=== PATIENT | male | born 1970 | race Caucasian/White ===

== ENCOUNTER 2017-03-29 23:45 | Observation (INO) ==
[2017-03-30] MEDS ORDERED: 0.9 % Sodium Chloride 1,000 ML IVC ONE ×2 (00:39→02:14)
[2017-03-30 01:24] LABS: Basophils # 0.1 K/mcL (0.0-0.2); Basophils % 0.6 %; Eosinophils # 0.3 K/mcL (0.0-0.6); Eosinophils % 2.4 %; Hematocrit 37.8 % (37.5-50.1); Hemoglobin 12.4 g/dL (12.9-16.9); Immature Granulocytes % 0.4 % (0-4); Lymphocytes # 4.1 K/mcL (0.6-4.6); Lymphocytes % 35.4 %; Mean Corpuscular HGB Conc 32.8 g/dL (31.6-35.5); Mean Corpuscular Hemoglobin 29.3 pg (28.0-33.3); Mean Corpuscular Volume 89.4 fL (83.0-100.0); Mean Platelet Volume 9.4 fL (9.4-12.4); Monocytes # 0.8 K/mcL (0.0-1.3); Monocytes % 7.3 %; Neutrophils # 6.2 K/mcL (1.6-8.9); Platelet Count 449 K/mcL (140-400); Red Blood Count 4.23 M/mcL (4.19-5.50); Red Cell Distribution Width 14.2 % (11.5-14.5); Segmented Neutrophils % 53.9 %
--- NOTE | 2017-03-30 01:38 | Emergency Department Note ---
Disposition Clinical Impression: Near syncope, Hyponatremia, Tobacco abuse Chest pain Qualifiers: Chest pain type: unspecified Qualified Code(s): R07.9 - Chest pain, unspecified Disposition: Admitted As Inpatient Condition: Good Time of Disposition: 02:40 Dizziness HPI - General Chief Complaint: ED Dizziness Stated Complaint: dizziness,syncope, bp is low Time Seen by Provider: 03/30/17 00:37 Source: patient, family Mode of arrival: ambulatory Limitations: no limitations Nursing Notes Reviewed: Yes Vital Signs Reviewed: Yes - History of Present Illness HPI Narrative: Patient is a 46-year-old male who presents to the ED with dizziness and chest pain. This all occurred around 10:30 PM. He became dizzy when he stood up and walking to the bathroom. He also got dizzy while he was straining to have a bowel movement on the toilet. Each of the dizziness episode lasted about 30-40 seconds. Patient also states that after that he began to have some chest pain. Chest pain is located on the left side does not radiate anywhere and nothing seems to make this pain any better or worse. Patient is currently not having any chest pain. Patient states that he had a stress test one year ago due to reported trigeminy prior to a colonoscopy. He states that the stress test was "normal" and was able to have the colonoscopy. Patient reports that he took his blood pressure during these events and initial blood pressure reading was 75 /43. She does report some mild shortness of breath that has resolved. He states that he is currently feeling drained. He denies any fall or loss of consciousness - Related Data Allergies Allergy/AdvReac Type Severity Reaction Status Date / Time Erythromycin Base AdvReac Diarrhea Verified 03/30/17 00:13 All systems ED: reviewed and negative except as stated. Cardiovascular: Reports: chest pain Respiratory: Reports: dyspnea Gastrointestinal: Reports: abdominal pain Past Medical History - Past Medical History Medical history: Reports: hypertension Psychiatric history: Reports: depression - Social History Smoking Status: Current every day smoker Alcohol use: Reports: none Drug use: Reports: marijuana Physical Exam - General Limitations: no limitations General appearance: alert, in no apparent distress - Head Head exam: atraumatic, normocephalic - Neck Neck exam: Present: normal inspection, full ROM, trachea midline - Chest Chest inspection: Present: symmetric chest wall rise - Respiratory Respiratory exam: Present: normal lung sounds bilaterally. Absent: respiratory distress, wheezes - Cardiovascular Cardiovascular exam: Present: regular rate, normal rhythm, normal heart sounds, +S1, +S2 - Abdominal Exam Abdominal exam: Present: soft, tenderness Abdominal tenderness: Present: diffuse, mild - Extremities Exam Extremities exam: Present: full ROM. Absent: tenderness, pedal edema - Expanded Lower Extremity Exam Knee exam: Present: dislocation - Neurological Exam Neurological exam: Present: alert, oriented X3 - Psychiatric Psychiatric exam: Present: normal affect, normal mood - Skin Skin exam: Present: warm, dry, intact Course Vital Signs Temperature 98.1 F 03/30/17 00:08 Pulse Rate 83 03/30/17 00:08 Respiratory Rate 18 03/30/17 00:08 Blood Pressure 114/72 03/30/17 00:08 O2 Sat by Pulse Oximetry 95 03/30/17 00:08 Temperature 0 F L 03/30/17 03:00 Pulse Rate 66 03/30/17 00:58 Respiratory Rate 18 03/30/17 03:00 Blood Pressure 102/78 03/30/17 03:00 O2 Sat by Pulse Oximetry 95 03/30/17 00:08 Oxygen Delivery Oxygen Delivery Room Air Dizziness - MDM Narrative Medical decision making narrative: Patient is a 46-year-old male that presents to the ED for dizziness and chest pain. His EKG appears to be sinus rhythm. Due to the patient's symptoms and the history that was given as well as the laboratory findings showing hyponatremia we will be admitting the patient. The hospitalist has been called. I spoke with the hospitalist Dr. Jade and he has accepted the admission. - Lab Data Lab results reviewed: Yes I reviewed the patient's lab results. Result diagrams: 03/30/17 00:50 03/30/17 00:50 Lab Results 03/30/17 03/30/17 03/30/17 Range/Units 00:50 00:50 00:50 WBC 11.6 H (4.3-11.1) K/mcL RBC 4.23 (4.19-5.50) M/mcL Hgb 12.4 L (12.9-16.9) g/dL Hct 37.8 (37.5-50.1) % MCV 89.4 (83.0-100.0) fL MCH 29.3 (28.0-33.3) pg MCHC 32.8 (31.6-35.5) g/dL RDW 14.2 (11.5-14.5) % Plt Count 449 H (140-400) K/mcL MPV 9.4 (9.4-12.4) fL Immature Gran % 0.4 (0-4) % Seg Neutrophils % 53.9 % Lymphocytes % 35.4 % Monocytes % 7.3 % Eosinophils % 2.4 % Basophils % 0.6 % Neutrophils # 6.2 (1.6-8.9) K/mcL Lymphocytes # 4.1 (0.6-4.6) K/mcL Monocytes # 0.8 (0.0-1.3) K/mcL Eosinophils # 0.3 (0.0-0.6) K/mcL Basophils # 0.1 (0.0-0.2) K/mcL Sodium 127 L (136-145) mEq/L Potassium 3.5 (3.5-4.5) mEq/L Chloride 95 L (98-109) mEq/L Carbon Dioxide 19 (19-29) mEq/L BUN 8 (8-26) mg/dL Creatinine 1.18 (0.72-1.25) mg/dL Est GFR ( Amer) > 60 (> 60) Est GFR (Non-Af Amer) > 60 (> 60) BUN/Creatinine Ratio 7 (6-26) Glucose 117 H (70-99) mg/dL Calculated Osmolality 263 L (280-300) Calcium 9.4 (8.6-10.8) mg/dL Total Bilirubin 0.1 L (0.2-1.2) mg/dL AST 19 (5-34) Units/L ALT 18 (0-55) Units/L Alkaline Phosphatase 75 (38-126) Units/L Troponin I 0.01 (0-0.03) ng/mL Serum Total Protein 7.3 (6.0-8.3) g/dL Albumin 3.6 (3.5-5.0) g/dL Globulin 3.7 H (2.4-3.5) g/dL Albumin/Globulin Ratio 1.0 L (1.1-2.2) Urine Color (Yellow) Urine Clarity (Clear) Urine pH (5.0-8.0) pH Units Ur Specific [place] (1.010-1.025) Urine Protein (Neg-Trace) mg/dL Urine Glucose (UA) (Normal) mg/dL Urine Ketones (Negative) mg/dL Urine Blood (Negative) Urine Nitrite (Negative) Urine Bilirubin (Negative) Urine Urobilinogen (Normal) mg/dL Ur Leukocyte Esterase (Negative) Ur Culture Indicated? (NO) 03/30/17 Range/Units 01:30 WBC (4.3-11.1) K/mcL RBC (4.19-5.50) M/mcL Hgb (12.9-16.9) g/dL Hct (37.5-50.1) % MCV (83.0-100.0) fL MCH (28.0-33.3) pg MCHC (31.6-35.5) g/dL RDW (11.5-14.5) % Plt Count (140-400) K/mcL MPV (9.4-12.4) fL Immature Gran % (0-4) % Seg Neutrophils % % Lymphocytes % % Monocytes % % Eosinophils % % Basophils % % Neutrophils # (1.6-8.9) K/mcL Lymphocytes # (0.6-4.6) K/mcL Monocytes # (0.0-1.3) K/mcL Eosinophils # (0.0-0.6) K/mcL Basophils # (0.0-0.2) K/mcL Sodium (136-145) mEq/L Potassium (3.5-4.5) mEq/L Chloride (98-109) mEq/L Carbon Dioxide (19-29) mEq/L BUN (8-26) mg/dL Creatinine (0.72-1.25) mg/dL Est GFR ( Amer) (> 60) Est GFR (Non-Af Amer) (> 60) BUN/Creatinine Ratio (6-26) Glucose (70-99) mg/dL Calculated Osmolality (280-300) Calcium (8.6-10.8) mg/dL Total Bilirubin (0.2-1.2) mg/dL AST (5-34) Units/L ALT (0-55) Units/L Alkaline Phosphatase (38-126) Units/L Troponin I (0-0.03) ng/mL Serum Total Protein (6.0-8.3) g/dL Albumin (3.5-5.0) g/dL Globulin (2.4-3.5) g/dL Albumin/Globulin Ratio (1.1-2.2) Urine Color Yellow (Yellow) Urine Clarity Clear (Clear) Urine pH 6.5 (5.0-8.0) pH Units Ur Specific [place] 1.007 L (1.010-1.025) Urine Protein Negative (Neg-Trace) mg/dL Urine Glucose (UA) Normal (Normal) mg/dL Urine Ketones Negative (Negative) mg/dL Urine Blood Negative (Negative) Urine Nitrite Negative (Negative) Urine Bilirubin Negative (Negative) Urine Urobilinogen Normal (Normal) mg/dL Ur Leukocyte Esterase Negative (Negative) Ur Culture Indicated? NO (NO) - Radiology Data Radiology results reviewed: Yes I reviewed the patient's radiology results. Chest X-Ray 03/30/17 00:39 IMPRESSION: No acute process. D/ / Guillermo England MD / Guillermo England MD Interpreting Provider: Guillermo England MD - EKG Data EKG attestation: Yes I reviewed and interpreted this EKG. EKG results narrative: EKG shows sinus rhythm with a rate of 75 bpm, ER interval of 142, QRS duration 96, QTc of 400, with a normal axis. No ischemic changes noted on the EKG S.B.A.R. - S.B.A.R. Transition of Care: I spoke with Dr. Jade about the patient and he has accepted the patient to their service and asked that he have a telemetry bed. Attestation Statement - Attestation Attestation: I personally interviewed and examined this patient and my medical decision- making was reviewed with the ED Resident Physician, Dr. Vaughn. I agree with the documented findings, disposition and treatment plan as described except to the extent set forth below. Patient is a 46-year-old white male who presents to the emergency department tonight brought by his family for near syncopal episode which was associated with substernal chest pain at home both positional changes that elicited these symptoms as well as Valsalva during bowel movement. Patient currently on arrival is chest pain-free and asymptomatic no dizziness or lightheadedness in no acute distress on arrival. I agree with patient's physical exam findings as documented. EKG shows no acute ST or T-wave changes. Patient was given aspirin on arrival placed on payroll processor and pulse oximeter continued monitoring of vitals. He was given aspirin, a liter fluid bolus and had lab evaluation portal chest x-ray. We were concerned about patient's chest pain that was associated with near syncope. His chest x-ray is within normal limits, and initial troponin is negative. His sodium is extremely low 127 with unclear etiology. Patient denies any loss of fluids or recent illness. Patient was placed in seizure precautions and IV fluids were initiated. Patient remained hemodynamically stable while in the emergency department, received 2 L fluid bolus and maintenance IV fluids. Patient has remained chest pain free throughout his stay. We will admit him for further evaluation of near syncope, chest pain, hyponatremia. Case was discussed with the hospitalist who accepted the patient for admission.
[2017-03-30 01:40] LABS: Alanine Aminotransferase 18 Units/L (0-55); Albumin 3.6 g/dL (3.5-5.0); Alkaline Phosphatase 75 Units/L (38-126); Aspartate Amino Transferase 19 Units/L (5-34); BUN/Creatinine Ratio 7 (6-26); Bilirubin,Total 0.1 mg/dL (0.2-1.2); Blood Urea Nitrogen 8 mg/dL (8-26); Calcium 9.4 mg/dL (8.6-10.8); Carbon Dioxide 19 mEq/L (19-29); Chloride 95 mEq/L (98-109); Globulin 3.7 g/dL (2.4-3.5); Glucose 117 mg/dL (70-99); Osmolality,Calculated 263 (280-300); Potassium 3.5 mEq/L (3.5-4.5); Sodium 127 mEq/L (136-145); Total Protein 7.3 g/dL (6.0-8.3); eGFR For African Americans > 60 (> 60); eGFR For Non-African Americans > 60 (> 60)
[2017-03-30 01:54] LABS: Bilirubin,Urine Negative (Negative); Blood,Urine Negative (Negative); Clarity,Urine Clear (Clear); Color,Urine Yellow (Yellow); Glucose,Urine (UA) Normal (Normal); Ketones,Urine Negative (Negative); Leukocyte Esterase,Urine Negative (Negative); Nitrite,Urine Negative (Negative); PH,Urine 6.5 pH Units (5.0-8.0); Protein,Urine Negative (Neg-Trace); Specific Gravity,Urine 1.007 (1.010-1.025); Urobilinogen,Urine Normal (Normal)
[2017-03-30] MEDS ORDERED: Aspirin 81 MG TAB.CHEW PO ONE (02:00)
[2017-03-30] MEDS ORDERED: Nicotine 21 MG PATCH.TD24 TD ONE (02:30)
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
[2017-03-30] MEDS ORDERED: Naloxone 0.4 MG/ML INJ IVP PRN (04:14)
[2017-03-30] MEDS ORDERED: Acetaminophen 325 MG TABLET PO PRN (04:14)
[2017-03-30] MEDS ORDERED: Ondansetron ODT 4 MG TAB.RAPDIS SL PRN (04:14)
[2017-03-30] MEDS ORDERED: *HR* Heparin 5,000 UNIT/ML VIAL SQ SCH (06:00)
[2017-03-30] MEDS ORDERED: Nicotine 14 MG PATCH.TD24 TD SCH (09:00)
[2017-03-30] MEDS ORDERED: Lisinopril-HCTZ 20-12.5mg TABLET PO SCH (09:00)
[2017-03-30 09:04] LABS: Basophils # 0.1 K/mcL (0.0-0.2); Basophils % 0.8 %; Eosinophils # 0.4 K/mcL (0.0-0.6); Eosinophils % 3.8 %; Hematocrit 36.8 % (37.5-50.1); Immature Granulocytes % 0.2 % (0-4); Lymphocytes # 4.7 K/mcL (0.6-4.6); Lymphocytes % 49.4 %; Mean Corpuscular HGB Conc 32.6 g/dL (31.6-35.5); Mean Corpuscular Hemoglobin 29.4 pg (28.0-33.3); Mean Corpuscular Volume 90.2 fL (83.0-100.0); Mean Platelet Volume 9.6 fL (9.4-12.4); Monocytes # 0.6 K/mcL (0.0-1.3); Monocytes % 6.4 %; Neutrophils # 3.8 K/mcL (1.6-8.9); Platelet Count 393 K/mcL (140-400); Red Blood Count 4.08 M/mcL (4.19-5.50); Red Cell Distribution Width 14.2 % (11.5-14.5); Segmented Neutrophils % 39.4 %
[2017-03-30 09:18] LABS: BUN/Creatinine Ratio 7 (6-26); Blood Urea Nitrogen 6 mg/dL (8-26); Calcium 8.5 mg/dL (8.6-10.8); Carbon Dioxide 25 mEq/L (19-29); Chloride 101 mEq/L (98-109); Glucose 98 mg/dL (70-99); Osmolality,Calculated 272 (280-300); Sodium 132 mEq/L (136-145); eGFR For African Americans > 60 (> 60); eGFR For Non-African Americans > 60 (> 60)
[2017-03-30 11:32] VITALS: BP 135/71
--- NOTE | 2017-03-30 11:57 | Discharge Summary ---
Date of Encounter: 03/30/17 Time of Encounter: 11:55 - Discharge Diagnosis (1) Chest pain Priority: Primary Status: Resolved Qualifiers: Chest pain type: unspecified Qualified Code(s): R07.9 - Chest pain, unspecified (2) Hyponatremia Priority: Primary Status: Acute (3) Dehydration Priority: Primary Status: Acute (4) Constipation Priority: Primary Status: Acute Qualifiers: Constipation type: unspecified constipation type Qualified Code(s): K59.00 - Constipation, unspecified (5) Tobacco abuse Priority: Secondary Status: Chronic - Discharge Medications Home Medications: Acetaminophen [Tylenol] 03/30/17 [History] DiphenhydraMINE [Benadryl] 03/30/17 [History] Docusate [Colace] 100 mg PO BID 03/30/17 [History] Gabapentin [Neurontin] 100 mg PO BID 03/30/17 [History] Pantoprazole Sodium [Protonix] 40 mg PO BID 03/30/17 [History] Sennosides [Senna] 2 tab PO HS 03/30/17 [History] Tizanidine HCl [Zanaflex] 1 tab PO BID PRN 03/30/17 [History] Allergies/Adverse Reactions: Allergies Erythromycin Base Adverse Reaction (Verified 03/30/17 00:13) Diarrhea Procedures/tests Complete & Pending: Procedures Performed prior 72 hours Category Date Time Status EV echocardiogram Routine Y 03/30/17 05:38 Stop Req Date of admission: 03/30/17 02:54 Primary care physician: PCP NO - Patient Status Disposition: Home, Self-Care Condition: Good Functional capacity at discharge: independent ambulation Overall status at discharge: patient is progressing back to baseline - Discharge Instructions Instructions: Chest Pain (DC) Follow Up With: NO,PCP [Primary Care Provider] - Forms: ED Satisfaction Letter Additional Instructions: check your blood pressure twice daily, same time in the morning and in the evening. write down numbers and bring record to doctor' s appointment. call your doctor if BP more than 140/90 - Diet and Activity Activity: resume usual activities as tolerated Diet: low fat, low cholesterol Interval History: no chest pain. no shortness of breath. he feels much better and is eager to go home. Hospital course: Mr. Hutson is a 46 year old male with a past medical history of hypertension, and depression who presented with a chief complaint of lightheadedness and left- sided chest pain. He took his blood pressure at home and it was 80/50. In our ED, he was hemodynamically stable. Sodium was 127. Hemoglobin 12. Negative troponin 2. EKG showed no acute ischemic changes. Chest x-ray was negative for any acute process He received 2 L of normal saline in the ED. On arrival to our floor, he was asymptomatic and hemodynamically stable. No telemetry events during the hospitalization. His sodium went up to 132. He had a large bowel movement. PLAN: Patient and family explaining detail his diagnosis of hyponatremia, and dehydration as well as his treatment including stopping lisinopril and HCTZ, maintaining a good hydration. Patient verbalized understanding and agree with the plan. All questions answered. He was counseled to quit smoking. He declined. check BP daily. Repeat sodium on Friday at outpatient primary care doctor's office. - Time Spent with Patient Total time spent providing and/or coordinating discharge services: - Constitutional Vitals: Temp Pulse Resp BP Pulse Ox 98.0 F 59 16 135/71 96 03/30/17 11:28 03/30/17 11:28 03/30/17 11:28 03/30/17 11:28 03/30/17 11:28 General appearance: Present: cooperative, A&O X 3, pleasant, no acute distress, obese, answers questions appropriately - Eye Eye exam: Present: PERRL, sclera anicteric - Neck Neck exam general surgery: Present: supple, trachea midline. Absent: lymphadenopathy - Respiratory Respiratory exam: Present: CTAB - Cardiovascular Cardiovascular exam: Present: RRR - GI/Abdominal GI/Abdominal exam: Present: normal bowel sounds, soft. Absent: distended, tenderness - Extremities Exam Extremities exam: Absent: pedal edema - Back Exam Back exam: Absent: CVA tenderness (L), CVA tenderness (R) - Neurological Exam Neurological exam: Present: alert, oriented X3, no focal deficits, strengths equal and symetr throughout. Absent: facial droop, speech deficit - Skin Skin exam: Absent: rash
--- NOTE | 2017-03-31 15:20 | Electrocardiograph Report ---
[place] [id number] Test Date: 2017-03-30 Pat Name: Larry Hutson Department: 105 Room: 3B44 Gender: M Collections Analyst: TRACI : 1970 Requested By: Jaylene Hernández Order Number: [id number] Reading MD: Ra Gonzalez MD Measurements Intervals [place] Rate: 75 P: 33 MT: 142 QRS: 8 QRSD: 96 T: 18 QT: 371 QTc: 400 Interpretive Statements SINUS RHYTHM Electronically Signed On 03-31-2017 15:18:25 EDT by Ra Gonzalez MD
== END 2017-03-30 12:20 | disposition home or self-care (01) ==
LOC: EMEROO 23:45 → 3BNU 23:45 → SUATTDRO 03-30 02:54 → 3BNU 03-30 03:55
PROVIDERS: ADMIT Pediatrics; ATTEND Internal Medicine

== ENCOUNTER 2017-07-20 10:19 | Inpatient (IN) ==
[2017-07-20] MEDS ORDERED: Ondansetron ODT 4 MG TAB.RAPDIS SL ONE (10:45)
--- NOTE | 2017-07-20 10:45 | Emergency Department Note ---
Disposition Clinical Impression: Hypoxia Pneumonia Qualifiers: Pneumonia type: due to unspecified organism Laterality: left Lung location: lower lobe of lung Qualified Code(s): J18.1 - Lobar pneumonia, unspecified organism Disposition: Admitted As Inpatient Condition: Fair Referrals: Kira Lopez MD [Primary Care Provider] - Forms: ED Satisfaction Letter, Work/School Release Time of Disposition: 12:10 Abdominal Pain HPI - General Chief Complaint: ED General Medical Stated Complaint: chills,fever Time Seen by Provider: 07/20/17 10:35 Source: patient Mode of arrival: ambulatory Limitations: no limitations Nursing Notes Reviewed: Yes Vital Signs Reviewed: Yes - History of Present Illness HPI Narrative: 46-year-old comes in complaining of a fever cough burning with urination and abdominal pain and constipation. Patient has a chronic history of constipation ran out of one of his medications. Patient has taken mag citrate without success. Pt Subjective Complaint: abdominal pain Onset (ago): day(s) Consistency: constant Location: diffuse Pain Scale: 5 Quality: aching Radiation: none Migration to: no migration Improves with: nothing Associated symptoms: Reports: nausea, constipation Treatments prior to arrival: none - Related Data Home Medications Medication Instructions Recorded Confirmed Acetaminophen [Tylenol] 03/30/17 DiphenhydraMINE [Benadryl] 03/30/17 Docusate [Colace] 100 mg PO BID 03/30/17 03/30/17 Gabapentin [Neurontin] 100 mg PO BID 03/30/17 03/30/17 Pantoprazole Sodium [Protonix] 40 mg PO BID 03/30/17 03/30/17 Sennosides [Senna] 2 tab PO HS 03/30/17 03/30/17 Tizanidine HCl [Zanaflex] 1 tab PO BID PRN 03/30/17 03/30/17 Allergies Allergy/AdvReac Type Severity Reaction Status Date / Time Erythromycin Base AdvReac Diarrhea Verified 07/20/17 10:34 Abdominal Pain PMH - Past Medical History Medical history: Reports: hypertension, kidney stones Male Surgical History: Reports: orthopedic, other Psychiatric history: Reports: depression - Social History Smoking status: Current every day smoker Alcohol use: Reports: none Drug use: Reports: marijuana Physical Exam - General Limitations: no limitations General appearance: alert, in no apparent distress - Head Head exam: atraumatic, normocephalic, normal inspection - Eye Eye exam: Present: normal appearance, PERRL, EOMI - ENT ENT exam: normal exam, normal oropharynx, mucous membranes moist - Neck Neck exam: Present: normal inspection, full ROM, trachea midline - Chest Chest inspection: Present: normal inspection, symmetric chest wall rise - Respiratory Respiratory exam: Present: normal lung sounds bilaterally - Cardiovascular Cardiovascular exam: Present: regular rate, normal rhythm, normal heart sounds - Abdominal Exam Abdominal exam: Present: soft, tenderness. Absent: guarding, rebound Abdominal tenderness: Present: diffuse - Extremities Exam Extremities exam: Present: normal inspection, full ROM. Absent: tenderness, pedal edema - Expanded Lower Extremity Exam Neurovascular/Tendon exam: Absent: motor deficit, sensory deficit, tendon deficit Gait: observed and normal - Back Exam Back exam: Present: normal inspection, full ROM. Absent: tenderness - Neurological Exam Neurological exam: Present: alert, oriented X3 - Psychiatric Psychiatric exam: Present: normal affect, normal mood - Skin Skin exam: Present: warm, dry, intact, normal color Course - Reevaluation(s) Reevaluation #1: 46-year-old who comes in with a cough congestion and fever also complaining of constipation. Workup included chest x-ray shows a left lower lobe infiltrate. Pulse ox was 90% on room air. Pulse ox improved to 94-95% on 2 L. Patient will be admitted for pneumonia with hypoxia. Time: 12:08 - Consultations Consultation #1: Discussed with Dr. Gaspar, admitted Time: 12:16 Vital Signs Temperature 102.7 F H 07/20/17 10:29 Pulse Rate 95 07/20/17 10:29 Respiratory Rate 20 07/20/17 10:29 Blood Pressure 199/127 07/20/17 10:29 O2 Sat by Pulse Oximetry 92 07/20/17 10:29 Temperature 100.7 F H 07/20/17 11:33 Pulse Rate 91 07/20/17 11:33 Respiratory Rate 20 07/20/17 11:33 Blood Pressure 130/78 07/20/17 11:33 O2 Sat by Pulse Oximetry 92 07/20/17 11:33 Oxygen Delivery Oxygen Delivery Room Air Abdominal Pain - Lab Data Result diagrams: 07/20/17 10:54 07/20/17 10:54 Lab Results 07/20/17 07/20/17 07/20/17 Range/Units 10:44 10:54 10:54 WBC 13.7 H (4.3-11.1) K/mcL RBC 4.83 (4.19-5.50) M/mcL Hgb 13.5 (12.9-16.9) g/dL Hct 41.1 (37.5-50.1) % MCV 85.1 (83.0-100.0) fL MCH 28.0 (28.0-33.3) pg MCHC 32.8 (31.6-35.5) g/dL RDW 16.4 H (11.5-14.5) % Plt Count 436 H (140-400) K/mcL MPV 9.3 L (9.4-12.4) fL Immature Gran % 0.4 (0-4) % Seg Neutrophils % 74.5 % Lymphocytes % 14.9 % Monocytes % 9.6 % Eosinophils % 0.1 % Basophils % 0.5 % Neutrophils # 10.2 H (1.6-8.9) K/mcL Lymphocytes # 2.0 (0.6-4.6) K/mcL Monocytes # 1.3 (0.0-1.3) K/mcL Eosinophils # 0.0 (0.0-0.6) K/mcL Basophils # 0.1 (0.0-0.2) K/mcL Immature Plt Fraction 2.7 (1.1-6.1) % Sodium 132 L (136-145) mEq/L Potassium 3.6 (3.5-4.5) mEq/L Chloride 99 (98-109) mEq/L Carbon Dioxide 19 (19-29) mEq/L BUN 9 (8-26) mg/dL Creatinine 1.01 (0.72-1.25) mg/dL Est GFR ( Amer) > 60 (> 60) Est GFR (Non-Af Amer) > 60 (> 60) BUN/Creatinine Ratio 9 (6-26) Glucose 106 H (70-99) mg/dL Calculated Osmolality 273 L (280-300) Lactic Acid (0.5-2.2) mmol/L Calcium 9.3 (8.6-10.8) mg/dL Total Bilirubin 0.5 (0.2-1.2) mg/dL Direct Bilirubin 0.2 (0.0-0.5) mg/dL Indirect Bilirubin 0.3 (0.0-1.2) mg/dL AST 18 (5-34) Units/L ALT 20 (0-55) Units/L Alkaline Phosphatase 84 (38-126) Units/L Serum Total Protein 8.1 (6.0-8.3) g/dL Albumin 3.2 L (3.5-5.0) g/dL Globulin 4.9 H (2.4-3.5) g/dL Albumin/Globulin Ratio 0.7 L (1.1-2.2) Amylase 39 (25-125) Units/L Lipase 15 (8-78) Units/L Urine Color Dark Yellow (Yellow) Urine Clarity Clear (Clear) Urine pH 6.0 (5.0-8.0) pH Units Ur Specific [place] > 1.030 H (1.010-1.025) Urine Protein Trace (Neg-Trace) mg/dL Urine Glucose (UA) Normal (Normal) mg/dL Urine Ketones Negative (Negative) mg/dL Urine Blood Negative (Negative) Urine Nitrite Negative (Negative) Urine Bilirubin Negative (Negative) Urine Urobilinogen Normal (Normal) mg/dL Ur Leukocyte Esterase Negative (Negative) Urine Microscopic RBC 3-5 H (0-3) per hpf Urine Microscopic WBC 0-3 (0-3) per hpf Ur Squamous Epith Cells Few (None-Few) per lpf Urine Bacteria None Seen (None-Few) per hpf Hyaline Casts None Seen (None-Few) per lpf Ur Culture Indicated? NO (NO) 07/20/17 Range/Units 10:54 WBC (4.3-11.1) K/mcL RBC (4.19-5.50) M/mcL Hgb (12.9-16.9) g/dL Hct (37.5-50.1) % MCV (83.0-100.0) fL MCH (28.0-33.3) pg MCHC (31.6-35.5) g/dL RDW (11.5-14.5) % Plt Count (140-400) K/mcL MPV (9.4-12.4) fL Immature Gran % (0-4) % Seg Neutrophils % % Lymphocytes % % Monocytes % % Eosinophils % % Basophils % % Neutrophils # (1.6-8.9) K/mcL Lymphocytes # (0.6-4.6) K/mcL Monocytes # (0.0-1.3) K/mcL Eosinophils # (0.0-0.6) K/mcL Basophils # (0.0-0.2) K/mcL Immature Plt Fraction (1.1-6.1) % Sodium (136-145) mEq/L Potassium (3.5-4.5) mEq/L Chloride (98-109) mEq/L Carbon Dioxide (19-29) mEq/L BUN (8-26) mg/dL Creatinine (0.72-1.25) mg/dL Est GFR ( Amer) (> 60) Est GFR (Non-Af Amer) (> 60) BUN/Creatinine Ratio (6-26) Glucose (70-99) mg/dL Calculated Osmolality (280-300) Lactic Acid 3.6 H (0.5-2.2) mmol/L Calcium (8.6-10.8) mg/dL Total Bilirubin (0.2-1.2) mg/dL Direct Bilirubin (0.0-0.5) mg/dL Indirect Bilirubin (0.0-1.2) mg/dL AST (5-34) Units/L ALT (0-55) Units/L Alkaline Phosphatase (38-126) Units/L Serum Total Protein (6.0-8.3) g/dL Albumin (3.5-5.0) g/dL Globulin (2.4-3.5) g/dL Albumin/Globulin Ratio (1.1-2.2) Amylase (25-125) Units/L Lipase (8-78) Units/L Urine Color (Yellow) Urine Clarity (Clear) Urine pH (5.0-8.0) pH Units Ur Specific [place] (1.010-1.025) Urine Protein (Neg-Trace) mg/dL Urine Glucose (UA) (Normal) mg/dL Urine Ketones (Negative) mg/dL Urine Blood (Negative) Urine Nitrite (Negative) Urine Bilirubin (Negative) Urine Urobilinogen (Normal) mg/dL Ur Leukocyte Esterase (Negative) Urine Microscopic RBC (0-3) per hpf Urine Microscopic WBC (0-3) per hpf Ur Squamous Epith Cells (None-Few) per lpf Urine Bacteria (None-Few) per hpf Hyaline Casts (None-Few) per lpf Ur Culture Indicated? (NO)
[2017-07-20 10:53] LABS: Bilirubin,Urine Negative (Negative); Blood,Urine Negative (Negative); Clarity,Urine Clear (Clear); Color,Urine Dark Yellow (Yellow); Glucose,Urine (UA) Normal (Normal); Ketones,Urine Negative (Negative); Leukocyte Esterase,Urine Negative (Negative); Nitrite,Urine Negative (Negative); Protein,Urine Trace mg/dL (Neg-Trace); Specific Gravity,Urine > 1.030 (1.010-1.025); Urobilinogen,Urine Normal (Normal)
[2017-07-20 10:56] LABS: Bacteria,Urine None Seen per hpf (None-Few); Hyaline Casts,Urine None Seen per lpf (None-Few); Squamous Epithelial Cell,Urine Few per lpf (None-Few); WBC,Urine 0-3 per hpf (0-3)
[2017-07-20 11:01] LABS: Basophils # 0.1 K/mcL (0.0-0.2); Basophils % 0.5 %; Eosinophils % 0.1 %; Hematocrit 41.1 % (37.5-50.1); Hemoglobin 13.5 g/dL (12.9-16.9); Immature Granulocytes % 0.4 % (0-4); Immature Platelets 2.7 % (1.1-6.1); Lymphocytes % 14.9 %; Mean Corpuscular HGB Conc 32.8 g/dL (31.6-35.5); Mean Corpuscular Volume 85.1 fL (83.0-100.0); Mean Platelet Volume 9.3 fL (9.4-12.4); Monocytes # 1.3 K/mcL (0.0-1.3); Monocytes % 9.6 %; Neutrophils # 10.2 K/mcL (1.6-8.9); Platelet Count 436 K/mcL (140-400); Red Blood Count 4.83 M/mcL (4.19-5.50); Red Cell Distribution Width 16.4 % (11.5-14.5); Segmented Neutrophils % 74.5 %
[2017-07-20 11:14] LABS: Alanine Aminotransferase 20 Units/L (0-55); Albumin 3.2 g/dL (3.5-5.0); Albumin/Globulin Ratio 0.7 (1.1-2.2); Alkaline Phosphatase 84 Units/L (38-126); Amylase 39 Units/L (25-125); Aspartate Amino Transferase 18 Units/L (5-34); BUN/Creatinine Ratio 9 (6-26); Bilirubin,Direct 0.2 mg/dL (0.0-0.5); Bilirubin,Indirect 0.3 mg/dL (0.0-1.2); Bilirubin,Total 0.5 mg/dL (0.2-1.2); Blood Urea Nitrogen 9 mg/dL (8-26); Calcium 9.3 mg/dL (8.6-10.8); Carbon Dioxide 19 mEq/L (19-29); Chloride 99 mEq/L (98-109); Globulin 4.9 g/dL (2.4-3.5); Glucose 106 mg/dL (70-99); Lipase 15 Units/L (8-78); Osmolality,Calculated 273 (280-300); Potassium 3.6 mEq/L (3.5-4.5); Sodium 132 mEq/L (136-145); Total Protein 8.1 g/dL (6.0-8.3); eGFR For African Americans > 60 (> 60); eGFR For Non-African Americans > 60 (> 60)
[2017-07-20] MEDS ORDERED: Levofloxacin 750 MG/150 ML 750 MG/150 ML BAG IVPB STA (12:04)
[2017-07-20] MEDS ORDERED: 0.9 % Sodium Chloride 1,000 ML IVC ONE (12:04)
[2017-07-20] MEDS ORDERED: Ketorolac 15 MG/ML VIAL IVP ONE (12:17)
[2017-07-20] MEDS ORDERED: Naloxone 0.4 MG/ML INJ IVP PRN (14:52)
[2017-07-20] MEDS ORDERED: Sennosides 8.6 MG TABLET PO PRN (14:55)
--- NOTE | 2017-07-20 14:57 | Internal Med History&Physical ---
Date of Encounter: 07/20/17 Time of Encounter: 14:56 Assessment and Plan (1) Sepsis Current visit: Yes Status: Acute IVF, levaquin, treated PNA, trend lactate blood cx sent in the ED Qualifiers: Qualified Code(s): A41.9 - Sepsis, unspecified organism (2) Hypoxia Current visit: Yes Status: Acute duonebs, treat PNA, supportive care (3) Pneumonia Current visit: Yes Status: Acute IV levaquin, IVF serologies pend - lobar PNA, unlikely to represent atypical infection Qualifiers: Pneumonia type: due to unspecified organism Laterality: left Lung location: lower lobe of lung Qualified Code(s): J18.1 - Lobar pneumonia, unspecified organism Internal Medicine - H&P: HPI Chief complaint: Fever History of present illness: Mr. Hutson is a 46 year old male who presents with one-week history of fever or chills up to 102.7 associated with cough productive for yellow sputum. Additional symptoms of nausea, fatigue, body aches reported. The symptoms did not improve with time and got worse which led to admission to the ER. Of note she he smokes a pack and half a day. Denies any sick contacts all health care facility exposure. Of note he reported he had low blood pressure with low sodium last March otherwise denies any significant medical history. XR/XR chest 1V portable IMPRESSION: Left lower lobe infiltrate compatible with pneumonia CT/CT abd pelvis wo no iv no oral IMPRESSION: No acute abnormality of the abdomen or pelvis. Small amount of left lower lobe airspace disease suspicious for pneumonia. Past Med Surg Social Fam HX - Past Medical History Medical history: hypertension, kidney stones Psychiatric history: depression - Social History Smoking Status: Current every day smoker Smokeless Tobacco Status: No Alcohol use: none Drug use: marijuana - Family History Father Living Status: Hx Family Cardiac Disorders: Yes (Arteriosclerosis, aortic bipass, CAD, HLD, HTN , [place]) Hx Family Respiratory Disorders: No Hx Family Cancer: No Hx Family GI Disorders: No Hx Family Endocrine Disorder: No Hx Family Neuromuscular Disorders: No Hx Family Neurologic Disorders: No Hx Family HEENT Disorders: No Hx Family Autoimmune Disorders: No - Additional Family History Additional family history: HTN Internal Medicine - H&P: Meds DiphenhydraMINE [Benadryl] 50 mg PO HS 07/16/17 [History] Pantoprazole Sodium [Protonix] 40 mg PO BID 03/30/17 [History] Sennosides [Senna] 17.2 mg PO HS PRN 03/30/17 [History] Tizanidine HCl [Zanaflex] 4 mg PO BID PRN 03/30/17 [History] Bisacodyl [Dulcolax] 5 mg PO DAILY PRN 07/20/17 [History] Citalopram Hydrobromide [Celexa] 40 mg PO DAILY 07/20/17 [History] Multivitamin [One Daily Essential] 1 each PO DAILY 07/20/17 [History] 3 Allergy/AdvReac Type Severity Reaction Status Date / Time Erythromycin Base AdvReac Diarrhea Verified 07/20/17 10:34 All Systems PM: A 10-system review of systems was performed and is negative for pertinent findings except as documented above in the HPI. Review of systems: ROS 14 point review of systems reviewed as best as possible given presentation. Pertinent positive or negative as per HPI or otherwise reviewed as negative - Constitutional Vitals: Temp Pulse Resp BP Pulse Ox 99.4 F 94 18 142/86 93 07/20/17 13:29 07/20/17 13:29 07/20/17 13:29 07/20/17 13:29 07/20/17 13:29 Exam: General - AAO x 3 Psych - Appropriate affect/speech. No agitation Eyes - MARGARITO. Eye lids intact. No scleral icterus Heart - Sinus. RRR. S1 and S2 present. No added HS/murmurs appreciated. No elevated JVD appreciated. Lung - Adequate air entry b/l, left lower lobe crackles, no wheezes appreciated. GI - Soft, non-tender. No hepatosplenomegaly/ascites. BS+ - No CVA/suprapubic tenderness or palpable bladder distension Skin - Intact. No rash/petechiae/ecchymosis. Warm extremities MSK - Joints with normal ROM. No joint swellings Internal Med - H&P Results - Labs CBC & Chem 7: 07/20/17 10:54 07/20/17 10:54
[2017-07-20] MEDS ORDERED: Ipratropium/Albuterol Neb 3 ML IH PRN (15:07)
[2017-07-20] MEDS: Ipratropium/Albuterol Neb 3 ML IH SCH ×2 (15:24→21:13)
[2017-07-20] MEDS: Ringers Solution, Lactated 1,000 ML IVC SCH (15:30)
[2017-07-20] MEDS: Nicotine 21 MG PATCH.TD24 TD SCH (15:31)
[2017-07-20] MEDS: Acetaminophen 325 MG TABLET PO PRN ×3 (17:21→23:35)
[2017-07-20] MEDS: Cefepime HCl 2,000 MG in Water for inj. (sterile) 20 ML IVP SCH (17:21)
[2017-07-20] MEDS: tiZANidine 4 MG TABLET PO PRN (17:27)
[2017-07-20] MEDS ORDERED: Cefepime HCl 2,000 MG in D5% in Water (Mini-Bag+) 100 ML IVPB SCH (18:00)
[2017-07-21] MEDS: Ringers Solution, Lactated 1,000 ML IVC SCH ×3 (01:54→21:52)
[2017-07-21] MEDS: Ipratropium/Albuterol Neb 3 ML IH SCH ×4 (03:41→22:29)
[2017-07-21 05:03] LABS: Basophils % 0.3 %; Hematocrit 35.1 % (37.5-50.1); Immature Granulocytes % 0.3 % (0-4); Lymphocytes # 2.2 K/mcL (0.6-4.6); Lymphocytes % 22.1 %; Mean Corpuscular HGB Conc 33.6 g/dL (31.6-35.5); Mean Corpuscular Hemoglobin 28.3 pg (28.0-33.3); Mean Corpuscular Volume 84.2 fL (83.0-100.0); Mean Platelet Volume 9.5 fL (9.4-12.4); Monocytes # 1.1 K/mcL (0.0-1.3); Monocytes % 10.9 %; Platelet Count 366 K/mcL (140-400); Red Blood Count 4.17 M/mcL (4.19-5.50); Red Cell Distribution Width 16.4 % (11.5-14.5); Segmented Neutrophils % 66.4 %
[2017-07-21] MEDS: Acetaminophen 325 MG TABLET PO PRN ×2 (05:11→13:00)
[2017-07-21] MEDS: Cefepime HCl 2,000 MG in Water for inj. (sterile) 20 ML IVP SCH ×2 (05:12→17:28)
[2017-07-21] MEDS: *HR* Enoxaparin 40 MG/0.4 ML SYRINGE SQ SCH (05:12)
[2017-07-21 05:21] LABS: BUN/Creatinine Ratio 9 (6-26); Blood Urea Nitrogen 8 mg/dL (8-26); Calcium 8.5 mg/dL (8.6-10.8); Carbon Dioxide 20 mEq/L (19-29); Chloride 101 mEq/L (98-109); Glucose 98 mg/dL (70-99); Osmolality,Calculated 276 (280-300); Potassium 3.3 mEq/L (3.5-4.5); Sodium 134 mEq/L (136-145); eGFR For African Americans > 60 (> 60); eGFR For Non-African Americans > 60 (> 60)
[2017-07-21 05:27] LABS: Hemoglobin 11.8 g/dL (12.9-16.9); Neutrophils # 6.6 K/mcL (1.6-8.9)
[2017-07-21 05:29] LABS: Platelet Estimate Normal (Normal)
[2017-07-21] MEDS: tiZANidine 4 MG TABLET PO PRN ×2 (05:37→21:52)
[2017-07-21] MEDS: Nicotine 21 MG PATCH.TD24 TD SCH (08:11)
--- NOTE | 2017-07-21 10:37 | Internal Med Progress Note ---
Date of Encounter: 07/21/17 Time of Encounter: 10:20 - Assessment and plan (1) Sepsis Current Visit: Yes Status: Acute Assessment and plan: Fever, tachycardia, Leukocytosis, LLL pneumonia Still febrile up til 0500 today , continue tylenol prn, follow blood cultures , sputum culture if and when possible Continue Cefepime and Levaquin Qualifiers: Sepsis type: sepsis due to unspecified organism Qualified Code(s): A41.9 - Sepsis, unspecified organism (2) Pneumonia Current Visit: Yes Status: Acute Assessment and plan: Legionella/Strep Ag negative Follow blood culture Sputum culture when patient is able to make sputum COntinue Cefepime and Levaquin with appropriate deescalation with cultures/ clinical improvement Qualifiers: Pneumonia type: due to unspecified organism Laterality: left Lung location: lower lobe of lung Qualified Code(s): J18.1 - Lobar pneumonia, unspecified organism (3) Tobacco abuse Current Visit: Yes Status: Chronic Assessment and plan: encourage cessation (4) Hypertension Current Visit: Yes Status: Suspected Assessment and plan: Suspected, blood pressure looks acceptable without meds, patient is not on any home meds for HTN Continue to monitor Qualifiers: Hypertension type: essential hypertension Qualified Code(s): I10 - Essential (primary) hypertension (5) Hypoxia Current Visit: Yes Status: Acute Assessment and plan: secondary to pneumonia Continue O2 by NC - Subjective Interval history: 46 M with tobacoc abuse being managed for Sepsis secondary to LLL pneumonia, possibly strep , community acquired Seen and evaluated at bedside, no new complains Last episode of fever this morning so far Leukocytosis is improving Cultures are pending - Constitutional Vitals: Temp Pulse Resp BP Pulse Ox 98.2 F 89 17 152/70 93 07/21/17 08:23 07/21/17 07:30 07/21/17 07:30 07/21/17 07:30 07/21/17 08:24 General appearance: Present: A&O X 3, pleasant, obese - Head Head exam: Present: atraumatic, normocephalic - Eye Eye exam: Present: PERRL, conjuntiva pink, sclera anicteric Pupils: Present: PERRL - Neck Neck exam general surgery: Present: supple, trachea midline. Absent: lymphadenopathy - Respiratory Respiratory exam: Present: rhonchi, wheezes - Cardiovascular Cardiovascular exam: Present: RRR, +S1, +S2. Absent: diastolic murmur, gallop, rubs, systolic murmur - GI/Abdominal GI/Abdominal exam: Present: normal bowel sounds, soft, no peritoneal signs. Absent: distended, tenderness - Extremities Exam Extremities exam: Present: warm, radial pulses palpable and symmetrical. Absent : calf tenderness, cyanotic, pedal edema - Neurological Exam Neurological exam: Present: alert, CN II-XII intact, oriented X3, no focal deficits. Absent: pronater drift, facial droop, speech deficit - Skin Skin exam: Present: dry, intact Internal Medicine: Result - Labs CBC & Chem 7: 07/21/17 04:44 07/21/17 04:44 Labs: Short CBC 07/21/17 Range/Units 04:44 WBC 10.0 (4.3-11.1) K/mcL Hgb 11.8 L D (12.9-16.9) g/dL Hct 35.1 L (37.5-50.1) % Plt Count 366 (140-400) K/mcL Neutrophils # 6.6 (1.6-8.9) K/mcL BMP 07/21/17 04:44 Sodium 134 L Potassium 3.3 L Chloride 101 Carbon Dioxide 20 BUN 8 Creatinine 0.90 Glucose 98 Calcium 8.5 L Consult Discharge Plan - Plan Referrals: Kira Lopez MD [Primary Care Provider] -
[2017-07-21] MEDS: Levofloxacin 750 MG/150 ML 750 MG/150 ML BAG IVPB SCH (11:36)
[2017-07-21] MEDS: Ondansetron 4 MG/2 ML VIAL IVP PRN ×2 (15:35→22:05)
[2017-07-22] MEDS: Ipratropium/Albuterol Neb 3 ML IH SCH ×4 (03:30→21:02)
[2017-07-22 05:06] LABS: Hematocrit 36.1 % (37.5-50.1); Hemoglobin 11.8 g/dL (12.9-16.9); Mean Corpuscular HGB Conc 32.7 g/dL (31.6-35.5); Mean Corpuscular Hemoglobin 27.8 pg (28.0-33.3); Mean Corpuscular Volume 84.9 fL (83.0-100.0); Mean Platelet Volume 9.2 fL (9.4-12.4); Platelet Count 392 K/mcL (140-400); Red Blood Count 4.25 M/mcL (4.19-5.50); Red Cell Distribution Width 16.6 % (11.5-14.5)
[2017-07-22 05:17] LABS: BUN/Creatinine Ratio 7 (6-26); Calcium 8.6 mg/dL (8.6-10.8); Carbon Dioxide 24 mEq/L (19-29); Chloride 104 mEq/L (98-109); Glucose 112 mg/dL (70-99); Osmolality,Calculated 280 (280-300); Potassium 3.7 mEq/L (3.5-4.5); Sodium 136 mEq/L (136-145); eGFR For African Americans > 60 (> 60); eGFR For Non-African Americans > 60 (> 60)
[2017-07-22 05:20] LABS: Blood Urea Nitrogen 5 mg/dL (8-26)
[2017-07-22 05:30] LABS: Lymphocytes # 1.5 K/mcL (0.6-4.6); Monocytes # 1.3 K/mcL (0.0-1.3); Neutrophils # 6.4 K/mcL (1.6-8.9); Platelet Estimate Normal (Normal); Reactive Lymphocytes Present (Not Present)
[2017-07-22] MEDS: *HR* Enoxaparin 40 MG/0.4 ML SYRINGE SQ SCH (06:02)
[2017-07-22] MEDS: Cefepime HCl 2,000 MG in Water for inj. (sterile) 20 ML IVP SCH ×2 (06:02→18:28)
[2017-07-22] MEDS: Nicotine 21 MG PATCH.TD24 TD SCH (09:00)
[2017-07-22] MEDS: Ringers Solution, Lactated 1,000 ML IVC SCH ×2 (10:19→21:21)
[2017-07-22] MEDS: Levofloxacin 750 MG/150 ML 750 MG/150 ML BAG IVPB SCH (11:51)
[2017-07-22] MEDS: tiZANidine 4 MG TABLET PO PRN (16:10)
--- NOTE | 2017-07-22 17:54 | Internal Med Progress Note ---
Date of Encounter: 07/22/17 Time of Encounter: 17:52 - Assessment and plan (1) Sepsis Current Visit: Yes Status: Acute Qualifiers: Sepsis type: sepsis due to unspecified organism Qualified Code(s): A41.9 - Sepsis, unspecified organism (2) Pneumonia Current Visit: Yes Status: Acute Qualifiers: Pneumonia type: due to unspecified organism Laterality: left Lung location: lower lobe of lung Qualified Code(s): J18.1 - Lobar pneumonia, unspecified organism (3) Hypertension Current Visit: Yes Status: Suspected Qualifiers: Hypertension type: essential hypertension Qualified Code(s): I10 - Essential (primary) hypertension (4) Tobacco abuse Current Visit: Yes Status: Chronic - Subjective Interval history: Had fever 102 yesterday but today afebrile. If remains afebrile for 48 hours and can be discharged on oral antibiotic. Advised not to smoke. Patient is admitted for pneumonia/sepsis. Clinically stable now - Constitutional Vitals: Temp Pulse Resp BP Pulse Ox 97.9 F 89 18 134/83 93 07/22/17 11:20 07/22/17 11:20 07/22/17 11:20 07/22/17 11:20 07/22/17 11:20 General appearance: Present: A&O X 3, pleasant, obese - Head Head exam: Present: atraumatic, normocephalic - Eye Eye exam: Present: PERRL, conjuntiva pink, sclera anicteric Pupils: Present: PERRL - Neck Neck exam general surgery: Present: supple, trachea midline. Absent: lymphadenopathy - Respiratory Respiratory exam: Present: CTAB, wheezes. Absent: accessory muscle use, rales, rhonchi - Cardiovascular Cardiovascular exam: Present: RRR, +S1, +S2. Absent: diastolic murmur, gallop, rubs, systolic murmur - GI/Abdominal GI/Abdominal exam: Present: normal bowel sounds, soft, no peritoneal signs. Absent: distended, tenderness - Extremities Exam Extremities exam: Present: warm, radial pulses palpable and symmetrical. Absent : calf tenderness, cyanotic, pedal edema - Neurological Exam Neurological exam: Present: CN II-XII intact, oriented X3, no focal deficits. Absent: pronater drift, facial droop, speech deficit - Skin Skin exam: Present: dry, intact Internal Medicine: Result - Labs CBC & Chem 7: 07/22/17 04:46 07/22/17 04:46 Labs: Short CBC 07/22/17 Range/Units 04:46 WBC 9.1 (4.3-11.1) K/mcL Hgb 11.8 L (12.9-16.9) g/dL Hct 36.1 L (37.5-50.1) % Plt Count 392 (140-400) K/mcL Neutrophils # 6.4 (1.6-8.9) K/mcL BMP 07/22/17 04:46 Sodium 136 Potassium 3.7 Chloride 104 Carbon Dioxide 24 BUN 5 L Creatinine 0.73 Glucose 112 H Calcium 8.6 Consult Discharge Plan - Plan Referrals: Kira Lopez MD [Primary Care Provider] -
[2017-07-23] MEDS: tiZANidine 4 MG TABLET PO PRN (01:23)
[2017-07-23 02:49] LABS: Basophils % 0.4 %; Eosinophils # 0.1 K/mcL (0.0-0.6); Eosinophils % 1.1 %; Hematocrit 32.9 % (37.5-50.1); Hemoglobin 10.9 g/dL (12.9-16.9); Immature Granulocytes % 0.3 % (0-4); Lymphocytes # 3.1 K/mcL (0.6-4.6); Lymphocytes % 30.5 %; Mean Corpuscular HGB Conc 33.1 g/dL (31.6-35.5); Mean Corpuscular Hemoglobin 27.9 pg (28.0-33.3); Mean Corpuscular Volume 84.1 fL (83.0-100.0); Mean Platelet Volume 8.9 fL (9.4-12.4); Monocytes # 1.1 K/mcL (0.0-1.3); Monocytes % 11.2 %; Neutrophils # 5.7 K/mcL (1.6-8.9); Platelet Count 427 K/mcL (140-400); Red Blood Count 3.91 M/mcL (4.19-5.50); Red Cell Distribution Width 16.3 % (11.5-14.5); Segmented Neutrophils % 56.5 %
[2017-07-23 03:03] LABS: BUN/Creatinine Ratio 7 (6-26); Calcium 8.7 mg/dL (8.6-10.8); Carbon Dioxide 25 mEq/L (19-29); Chloride 101 mEq/L (98-109); Glucose 119 mg/dL (70-99); Osmolality,Calculated 276 (280-300); Potassium 3.5 mEq/L (3.5-4.5); Sodium 134 mEq/L (136-145); eGFR For African Americans > 60 (> 60); eGFR For Non-African Americans > 60 (> 60)
[2017-07-23 03:05] LABS: Blood Urea Nitrogen 5 mg/dL (8-26)
[2017-07-23] MEDS: Ipratropium/Albuterol Neb 3 ML IH SCH ×3 (03:39→15:01)
[2017-07-23] MEDS: *HR* Enoxaparin 40 MG/0.4 ML SYRINGE SQ SCH (05:55)
[2017-07-23] MEDS: Cefepime HCl 2,000 MG in Water for inj. (sterile) 20 ML IVP SCH (05:55)
[2017-07-23] MEDS: Ringers Solution, Lactated 1,000 ML IVC SCH (08:19)
[2017-07-23] MEDS: Nicotine 21 MG PATCH.TD24 TD SCH (08:19)
[2017-07-23 08:23] LABS: Mycoplasma pneumoniae IgG 1.94 U/L (<=0.09)
--- NOTE | 2017-07-23 09:59 | Discharge Summary ---
Date of Encounter: 07/23/17 Time of Encounter: 09:57 - Discharge Diagnosis (1) Sepsis Priority: Primary Status: Acute Qualifiers: Sepsis type: sepsis due to unspecified organism Qualified Code(s): A41.9 - Sepsis, unspecified organism (2) Pneumonia Priority: Secondary Status: Acute Qualifiers: Pneumonia type: due to unspecified organism Laterality: left Lung location: lower lobe of lung Qualified Code(s): J18.1 - Lobar pneumonia, unspecified organism (3) Hypertension Priority: Secondary Status: Suspected Qualifiers: Hypertension type: essential hypertension Qualified Code(s): I10 - Essential (primary) hypertension (4) Tobacco abuse Priority: Secondary Status: Chronic - Discharge Medications Home Medications: DiphenhydraMINE [Benadryl] 50 mg PO HS 03/30/17 [History] Pantoprazole Sodium [Protonix] 40 mg PO BID 03/30/17 [History] Sennosides [Senna] 17.2 mg PO HS PRN 03/30/17 [History] Tizanidine HCl [Zanaflex] 4 mg PO BID PRN 03/30/17 [History] Bisacodyl [Dulcolax] 5 mg PO DAILY PRN 07/20/17 [History] Citalopram Hydrobromide [Celexa] 40 mg PO DAILY 07/20/17 [History] Multivitamin [One Daily Essential] 1 each PO DAILY 07/20/17 [History] Nicotine Patch [Nicoderm] 21 mg TD DAILY patch.td24 07/23/17 [Rx] Allergies/Adverse Reactions: 3 Allergy/AdvReac Type Severity Reaction Status Date / Time Erythromycin Base AdvReac Diarrhea Verified 07/20/17 10:34 Date of admission: 07/20/17 14:52 Primary care physician: Kira Lopez MD Discharging clinician: Gopi Han Anticipated date of discharge: 07/23/17 - Patient Status Disposition: Home, Self-Care Condition: Fair Overall status at discharge: patient is progressing back to baseline - Discharge Instructions Follow Up With: Kira Lopez MD [Primary Care Provider] - - Diet and Activity Activity: resume usual activities as tolerated Diet: advance to your usual diet Hospital course: Mr. Hutson is a 46 year old male admitted for sepsis secondary to left lower lobe pneumonia and acute exhibition of COPD. Patient was started on IV antibiotic and nebulizer treatment with improvement in his condition though he still requires 4 L of oxygen at home. Oxygen arranged. He is afebrile for more than 48 hours on IV antibiotics and ambulating well now and wants to go home. He will be discharged home on Levaquin and Ceftin orally steroid nebulizers and Mucinex and advised to follow with family doctor. - Time Spent with Patient Total time spent providing and/or coordinating discharge services: Greater than 30 minutes - Constitutional Vitals: Temp Pulse Resp BP Pulse Ox 98.2 F 83 17 145/85 92 07/23/17 04:32 07/23/17 07:57 07/23/17 07:57 07/23/17 07:57 07/23/17 08:25 General appearance: Present: A&O X 3, pleasant, obese - Head Head exam: Present: atraumatic, normocephalic - Eye Eye exam: Present: PERRL, conjuntiva pink, sclera anicteric Pupils: Present: PERRL - Neck Neck exam general surgery: Present: supple, trachea midline. Absent: lymphadenopathy - Respiratory Respiratory exam: Present: CTAB. Absent: accessory muscle use, rales, rhonchi, wheezes - Cardiovascular Cardiovascular exam: Present: RRR, +S1, +S2. Absent: diastolic murmur, gallop, rubs, systolic murmur - GI/Abdominal GI/Abdominal exam: Present: normal bowel sounds, soft, no peritoneal signs. Absent: distended, tenderness - Extremities Exam Extremities exam: Present: warm, radial pulses palpable and symmetrical. Absent : calf tenderness, cyanotic, pedal edema - Neurological Exam Neurological exam: Present: CN II-XII intact, oriented X3, no focal deficits. Absent: pronater drift, facial droop, speech deficit - Skin Skin exam: Present: dry, intact
[2017-07-23 11:00] VITALS: BP 148/91
[2017-07-23] MEDS ORDERED: levoFLOXacin 750 MG TABLET PO SCH (12:00)
== END 2017-07-23 15:30 | disposition home or self-care (01) | DRG 871 ==
LOC: 2ANU 10:19 → EMEROO 10:19 → 2ANU 13:13
PROVIDERS: ADMIT Hospitalist; ATTEND Internal Medicine